=== PATIENT | male | born 1985 | race Caucasian/White ===

== ENCOUNTER 2019-05-28 16:51 | Emergency (ER) | payer OTHER ==
[2019-05-28 16:57] VITALS: BP 143/95
[2019-05-28] MEDS ORDERED: IBUPROFEN 800 MG TABLET PO STA (17:02)
--- NOTE | 2019-05-28 17:06 | ED Physician Documentation ---
PD HPI LOWER EXT INJURY - Stated complaint Stated Complaint: LT KNEE INJ - Chief complaint Chief Complaint: Ext Problem - History obtained from History obtained from: Patient - History of Present Illness PD HPI LOW EXT INJURY LOCATION: Right Type of injury: Twist Timing - onset: Yesterday Worsened by: Other (weight bearing) Similar symptoms before: Has not had sx before - Additional information Additional information: The patient is a 33-year-old male who twisted his right knee yesterday when his friend tackled him while playing whiffle ball. He felt a pop, and has had pain with weightbearing since that time. He denies any other injuries. He denies history of prior right knee injury. Review of Systems Constitutional: denies: Fever Respiratory: denies: Dyspnea Skin: denies: Rash, Abrasion (s) Musculoskeletal: reports: Joint pain (right knee). denies: Back pain, Extremity swelling Neurologic: denies: Focal weakness, Numbness PD PAST MEDICAL HISTORY - Past Medical History Past Medical History: No Endocrine/Autoimmune: None - Past Surgical History Past Surgical History: No - Present Medications Home Medications: Ambulatory Orders Medication Instructions Recorded Confirmed No Known Home Medications 05/28/19 05/28/19 - Allergies Allergies/Adverse Reactions: Allergies Allergy/AdvReac Type Severity Reaction Status Date / Time No Known Drug Allergies Allergy Verified 05/28/19 16:56 - Social History Does the pt smoke?: No Smoking Status: Never smoker Does the pt drink ETOH?: Yes Does the pt have substance abuse?: No - Immunizations Immunizations are current?: Yes - POLST Patient has POLST: No PD ED PE NORMAL - Vitals Vital signs reviewed: Yes (Initially hypertensive.) - General General: Alert and oriented X 3, Well developed/nourished - HEENT HEENT: Atraumatic - Respiratory Respiratory: No respiratory distress - Derm Derm: No rash - Extremities Extremities: No calf tenderness / cord, Other (There is tenderness to palpation along the medial joint line of the right knee. There is no tenderness along the lateral joint line, the popliteal fossa, or the patella. He is able to extend the knee fully and can flex it to 90 degrees, although flexion exacerbates the discomfort. There is no appreciable effusion. There is no ligamentous instability. Distal neurovascular is intact.) - Neuro Neuro: Alert and oriented X 3, No motor deficit, No sensory deficit Results - Vitals Vitals: Vital Signs - 24 hr 05/28/19 16:54 Temperature 36.5 C Heart Rate 63 Respiratory 18 Rate Blood Pressure 143/95 H O2 Saturation 100 - Rads (name of study) right knee Radiology: Prelim report reviewed, EMP read contemporaneously, See rad report (No evidence of fracture or dislocation. There is a small suprapatellar joint effusion.) PD MEDICAL DECISION MAKING - ED course Complexity details: reviewed results, re-evaluated patient, considered differential, d/w patient ED course: The patient's presentation is most consistent with medial collateral ligament strain of the right knee. X-ray reveals no bony abnormality. Treatment in the emergency department included administration of ibuprofen 800 mg orally, and application of a right knee immobilizer. I discussed with him the expected course of injury, symptomatic treatment and outpatient follow-up, as well as potentially worrisome signs or symptoms that should prompt reevaluation in the emergency department. Departure - Departure Disposition: 01 Home, Self Care Clinical Impression: Medial collateral ligament sprain of knee Qualifiers: Encounter type: initial encounter Laterality: right Qualified Code(s): S83.411A - Sprain of medial collateral ligament of right knee, initial encounter Condition: Stable Instructions: ED Sprain Knee Collateral Ligaments Follow-Up: [facility] [Provider Group] Comments: Apply ice pack to your right knee intermittently for the next several days. You can use ibuprofen, up to 800 mg 3 times daily for its anti-inflammatory effect. Keep your right leg elevated as much of the time as possible. Use the knee immobilizer if it provides comfort. Follow-up with your primary physician or with orthopedic surgeon within 2 weeks. Call to schedule an appointment. Return to the emergency department if you develop increasing pain or swelling of your knee, or otherwise worsening symptoms. Forms: Activity restrictions
--- NOTE | 2019-05-28 17:24 | XRAY Report ---
Reason: right knee injury Procedure Date: 05/28/2019 Accession Number: [id number] / [id number] Procedure: XR - Knee 4 View RT CPT Code: FULL RESULT: EXAM: RIGHT KNEE RADIOGRAPHY EXAM DATE: 05/28/2019 05:16 PM. CLINICAL HISTORY: Right knee injury. COMPARISON: None. TECHNIQUE: 3 views. FINDINGS: Bones: No fracture or focal bony lesion. Joints: No evidence of dislocation. There is a small suprapatellar joint effusion. Soft Tissues: No unexpected soft tissue findings. IMPRESSION: 1. No evidence of fracture or dislocation. 2. There is a small suprapatellar joint effusion. [facility]
== END 2019-05-28 17:58 | disposition home or self-care (01) ==
LOC: ED 16:51
DX: S83.411A Sprain of medial collateral ligament of right knee, initial encounter (principal); W03.XXXA Other fall on same level due to collision with another person, initial encounter; X50.1XXA Overexertion from prolonged static or awkward postures, initial encounter; Y93.69 Activity, other involving other sports and athletics played as a team or group
CPT/HCPCS: 73564; 99282; 99283; A9270